=== PATIENT | female | born 2000 | race African-American/Black ===

== ENCOUNTER 2018-04-24 17:06 | Emergency (ER) | payer BC, OTHER ==
[~2018-04-24] VITALS: Ht 160 cm; Wt 81.2 kg
--- NOTE | ~2018-04-24 | EKG ---
[address] [place] [address] ELECTROCARDIOGRAM REPORT Name: XENIA DILLON Room #: 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 : 2000 Requested By: [place] Order Number: [id number] MD: Steve Peterson Measurements Intervals [place] Rate: 98 P: 39 HI: 126 QRS: 57 QRSD: 86 T: -75 QT: 310 QTc: 396 Interpretive Statements Sinus arrhythmia LVH by voltage Nonspecific T wave abnormality No previous ECG available for comparison Electronically Signed On 04-25-2018 9:25:15 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
[~2018-04-24 17:06] MED LIST: DEPOLUPRON; METFORMIN HCL500 MG; NORCO 5-325 TA1 EACH PO; TESTOSTERONE IM
[2018-04-24 18:03] LABS: ABSOLUTE NEUTROPHILS 4.8 thou/uL (1.4-8.2); BASOPHILS 0.8 % (0.0-2.0); EOSINOPHILS 0.8 % (0.0-3.0); HEMATOCRIT 47.5 % (37.0-47.0); HEMOGLOBIN 16.8 gm/dL (12.0-15.0); LYMPHOCYTES 25.1 % (24.0-44.0); MCH 26.1 pg (26.0-34.0); MCHC 35.3 g/dL (28.0-37.0); MCV 73.9 fL (80.0-100.0); MONOCYTES 5.5 % (1.0-8.0); PLATELET COUNT 228 thou/uL (150-400); POLYS 67.8 % (36.0-66.0); RBC 6.42 mil/uL (4.20-5.00); RDW 14.8 % (10.5-14.5)
[2018-04-24 18:18] LABS: URINE BILIRUBIN NEGATIVE (Negative); URINE BLOOD NEGATIVE (Negative); URINE CLARITY CLEAR; URINE COLOR YELLOW; URINE GLUCOSE-RANDOM* 3+ (Negative); URINE KETONES NEGATIVE (Negative); URINE LEUKOCYTES-REFLEX NEGATIVE (Negative); URINE NITRITE-REFLEX NEGATIVE (Negative); URINE PROTEIN (DIPSTICK) NEGATIVE (Negative); URINE UROBILINOGEN 0.2 E.U./dl (0.2-1.0)
[2018-04-24 18:26] LABS: AMP/METHAMP Negative (Negative); BARBITURATES Negative (Negative); BENZODIAZEPINES Negative (Negative); COCAINE Negative (Negative); METHADONE Negative (Negative); OPIATES Negative (Negative); PCP Negative (Negative)
[2018-04-24 18:39] LABS: ANION GAP 13 mmol/L (7-16); BUN 10 mg/dL (7-18); CALCIUM 9.9 mg/dL (8.5-10.1); CHLORIDE 99 mmol/L (98-107); CO2 24 mmol/L (21-32); CREATININE 1.1 mg/dL (0.6-1.0); GLUCOSE 384 mg/dL (74-106); POTASSIUM 4.3 mmol/L (3.5-5.1); SODIUM 136 mmol/L (136-145)
[2018-04-24 18:48] LABS: SGOT 17 U/L (15-37); SGPT 37 U/L (30-65); TOTAL BILIRUBIN 0.3 mg/dL (<0.1-1.0); TOTAL PROTEIN 8.7 g/dL (6.4-8.2); TROPONIN-I <0.06 ng/mL (<0.06)
== END 2018-04-24 21:39 | disposition home or self-care (01) ==
LOC: ER 17:06
PROVIDERS: Physician Assistant
DX: R00.0 Tachycardia, unspecified (principal); R07.9 Chest pain, unspecified; R06.02 Shortness of breath; R42 Dizziness and giddiness; M79.651 Pain in right thigh; F17.210 Nicotine dependence, cigarettes, uncomplicated; I10 Essential (primary) hypertension; Z90.10 Acquired absence of unspecified breast and nipple; Z90.710 Acquired absence of both cervix and uterus